=== PATIENT | male | born 1950 | race Caucasian/White ===

== ENCOUNTER 2017-07-19 09:31 | Outpatient (RCR) | payer MEDICARE, OTHER | END 2017-08-03 | disposition home or self-care (01) | LOC: ONC 09:31 | PROVIDERS: ATTEND Radiology Radiation Oncology | DX: Z51.0 Encounter for antineoplastic radiation therapy (principal); C61 Malignant neoplasm of prostate | CPT/HCPCS: 77300; 77301; 77334; 77336; 77338; 77385; 99214 ==

== ENCOUNTER 2018-01-09 14:59 | Outpatient (RCR) | payer MEDICARE, OTHER | END 2018-01-19 | disposition home or self-care (01) | LOC: ONC 14:59 | PROVIDERS: ATTEND Radiology Radiation Oncology | DX: C61 Malignant neoplasm of prostate (principal) | CPT/HCPCS: 99213 ==

== ENCOUNTER 2019-02-06 09:43 | Outpatient (RCR) | payer MEDICARE, OTHER | END 2019-04-23 | disposition home or self-care (01) | LOC: ONC 09:43 | PROVIDERS: ATTEND Radiology Radiation Oncology | DX: Z51.0 Encounter for antineoplastic radiation therapy (principal); C61 Malignant neoplasm of prostate | CPT/HCPCS: 77290; 77295; 77300; 77334; 77336; 77402; 77417; 77470; 99214 ==

== ENCOUNTER → 2019-02-08 | Outpatient (CLI) | payer MEDICARE, OTHER ==
[~2019-02-08] MED LIST: GADOBUTROL 10 MMOL/10 ML (GADAVIST) VIAL IV ONE
[2019-02-08 15:32] LABS: BUN/CREATININE RATIO 16; CREATININE SERUM 0.88 MG/DL (0.60-1.30); GFR ESTIMATED > 60
--- NOTE | 2019-02-08 17:00 | Diagnostic Imaging Report ---
PROCEDURE: MR imaging cervical spine with and without contrast. TECHNIQUE: Multiplanar and multisequence MRI of the cervical spine was performed with and without contrast. INDICATION: Neck pain. Prostate cancer with known skeletal metastases elsewhere in the body. COMPARISON: Thoracic spine MRI from 01/11/2019. FINDINGS: Mild straightening of the cervical spine is present. No marrow replacing process or pathologic enhancement to indicate skeletal metastases in the cervical spine. Cervical cord is normal in size and signal. No epidural mass or fluid collection. C2-C3: No spinal canal or neural foraminal narrowing. C3-C4: Posterior disc osteophyte complex partially effaces the ventral thecal sac. However, there is no spinal stenosis. Moderate right and mild left foraminal narrowing. C4-C5: Bilateral uncovertebral joint hypertrophy results in [id number] bilateral foraminal narrowing. No spinal stenosis. C5-C6: Central and bilateral paracentral disc osteophyte complex causes mild spinal stenosis. There is also [id number] bilateral foraminal narrowing due to uncovertebral joint hypertrophy. C6-C7: Left uncovertebral joint hypertrophy results in severe femoral narrowing. No resultant spinal stenosis. C7-T1: No spinal canal or foraminal narrowing. IMPRESSION: 1. No skeletal or soft tissue metastases within the cervical spine. Please note that nuclear medicine bone scan is the most sensitive exam to evaluate for skeletal metastases associated with prostate cancer. 2. No high-grade spinal stenosis. 3. Varying degrees of [id number] foraminal narrowing due to degenerative uncovertebral joint hypertrophy. Dictated by: Dictated on workstation # [id number]
== END ==
LOC: RAD 14:54
PROVIDERS: ATTEND Radiology Radiation Oncology
DX: M48.02 Spinal stenosis, cervical region (principal); M47.812 Spondylosis without myelopathy or radiculopathy, cervical region; C61 Malignant neoplasm of prostate; C79.51 Secondary malignant neoplasm of bone
CPT/HCPCS: 36415; 72156; 82565; 84520

== ENCOUNTER → 2019-10-25 | Outpatient (CLI) | payer MEDICARE, OTHER ==
[2019-10-25 14:46] LABS: BUN/CREATININE RATIO 18; GFR ESTIMATED > 60
--- NOTE | 2019-10-25 18:55 | Diagnostic Imaging Report ---
PROCEDURE: MRI right joint lower extremity with and without contrast. TECHNIQUE: Multiplanar, multisequence pre and post contrast-enhanced WILMAN of the right joint lower extremity was accomplished. INDICATION: Right hip pain. History of metastatic prostate cancer. COMPARISON: None available. FINDINGS: Bones: There are 2 rounded hypo-intense lesions in the posterior aspect of the right ilium and a potential lesion in the left iliac wing that may represent metastases. There are no features of skeletal metastases around either hip. A subchondral insufficiency fracture involves the left femoral head with a small amount of surrounding edema indicative of a subacute injury. Severe degenerative arthritis of both hips which have full-thickness articular cartilage loss in the superior aspect and associated underlying subchondral cystic change. Degenerative macerated tearing is present within the right anterosuperior labrum. Muscles and tendons: The proximal hamstring complexes are normal. The bilateral distal iliopsoas tendons are intact. The gluteus medius and minimus insertions are normal. No peritrochanteric fluid collection to indicate bursitis. Soft tissues: No enhancing soft tissue mass to suggest metastasis. Small bilateral hip effusions. IMPRESSION: 1. Subacute insufficiency fracture involving the LEFT femoral head. Severe degenerative arthritis of the left hip is also present. 2. There is also severe degenerative arthritis of the right hip without osteonecrosis or stress fracture. 3. Small hypointense foci in the bilateral marcio could represent prostate metastasis. Correlation with CT of the pelvis would be beneficial. Dictated by: Dictated on workstation # [id number]
== END ==
LOC: RAD 14:02
PROVIDERS: ATTEND Nurse Practitioner Family
DX: M84.452A Pathological fracture, left femur, initial encounter for fracture (principal); M16.0 Bilateral primary osteoarthritis of hip; Z85.46 Personal history of malignant neoplasm of prostate
CPT/HCPCS: 36415; 73723; 82565; 84520

== ENCOUNTER 2019-10-30 10:32 | Outpatient (RCR) | payer MEDICARE, OTHER | END 2020-01-28 | disposition home or self-care (01) | LOC: ONC 10:32 | PROVIDERS: ATTEND Radiology Radiation Oncology | DX: C61 Malignant neoplasm of prostate (principal) | CPT/HCPCS: 99212 ==

== ENCOUNTER → 2019-10-30 | Outpatient (CLI) | payer MEDICARE, OTHER ==
--- NOTE | 2019-10-30 13:08 | Diagnostic Imaging Report ---
PROCEDURE: CT pelvis without contrast. TECHNIQUE: Multiple contiguous axial images were obtained through the pelvis without the use of intravenous contrast. Sagittal and coronal reformations were performed. Auto Exposure Controls were utilized during the CT exam to meet ALARA standards for radiation dose reduction. DATE: October 30, 2019. INDICATION: 69-year-old male, history of prostate cancer. Right hip and iliac crest pain. COMPARISON: MRI October 25, 2019. FINDINGS: There is severe joint space loss of the right hip. There are subchondral cystic changes in the femoral head and acetabulum with a large subchondral cyst in the right anterior acetabulum. There is note of a right hip joint effusion on the recent MRI which is also visible on CT. There is severe joint space loss of the left hip with mild osteophyte formation. There is note of a left hip joint effusion on the MRI which is also visible on CT. There is also a subchondral fracture of the left femoral head without current evidence of collapse. There are multiple sclerotic bone lesions involving the left superior pubic ramus near the pubic symphysis on axial image 135 measuring 12 mm in size, right anterior iliac crest on axial image 85 measuring 2.1 cm in size, sacrum to the left of midline on axial image 53 measuring 10 mm in size, left iliac bone on axial image 49 measuring 17 mm in size, two right iliac bone lesions on axial image 44 with the largest more anteriorly located measuring 12 mm in size as well as additional sclerotic bone lesions involving the upper aspects of both sacroiliac bones. One example on the left measures 2.3 cm in size on axial image 27. There is severe disc height loss at L3-L4, L4-L5, and L5-S1. There are facet degenerative changes at these levels. There are atherosclerotic calcifications. IMPRESSION: 1. Redemonstrated subchondral fracture of the left femoral head without current evidence of subchondral collapse. 2. Severe arthritis of both hips with bilateral hip joint effusions. 3. Numerous sclerotic bone lesions of the pelvis as described above, consistent with multifocal bone metastases. 4. Advanced disc and facet degenerative changes of the imaged lumbar spine. Dictated by: Dictated on workstation # [id number]
== END ==
LOC: RAD 12:11
PROVIDERS: ATTEND Radiology Radiation Oncology
DX: C61 Malignant neoplasm of prostate (principal); S72.052A Unspecified fracture of head of left femur, initial encounter for closed fracture; M16.0 Bilateral primary osteoarthritis of hip; M25.852 Other specified joint disorders, left hip; M47.816 Spondylosis without myelopathy or radiculopathy, lumbar region; I70.90 Unspecified atherosclerosis; M25.752 Osteophyte, left hip; M51.37 Other intervertebral disc degeneration, lumbosacral region
CPT/HCPCS: 72192

== ENCOUNTER → 2020-01-08 | Outpatient (CLI) | payer MEDICARE, OTHER ==
[2020-01-09 10:10] LABS: ALANINE AMINOTRANSFERASE 16 U/L (0-55); ALKALINE PHOSPHATASE 41 U/L (40-136); BILIRUBIN,TOTAL 0.3 MG/DL (0.1-1.0); BUN/CREATININE RATIO 28; CALCIUM 8.5 MG/DL (8.5-10.1); CARBON DIOXIDE 28 MMOL/L (21-32); CHLORIDE 104 MMOL/L (98-107); CREATININE SERUM 0.85 MG/DL (0.60-1.30); GFR ESTIMATED > 60; GLUCOSE 94 MG/DL (70-105); POTASSIUM 4.4 MMOL/L (3.6-5.0); SODIUM 141 MMOL/L (135-145)
[2020-01-09 10:11] LABS: ALBUMIN 3.9 GM/DL (3.2-4.5); TOTAL PROTEIN 6.3 GM/DL (6.4-8.2)
--- NOTE | 2020-01-09 13:39 | Diagnostic Imaging Report ---
Efrain Paez DB: 1950 EXAMINATION: MRI of the pelvis with and without contrast. INDICATION: Metastatic prostate carcinoma. Pre- and post-intravenous contrast multiplanar and multisequence imaging of the pelvis was performed. Correlation is made with recent MRI of the pelvis and proximal femora from 10/25/2019. There are small marrow replacing lesions involving the iliac bones bilaterally, correlating with previously noted lesions. The largest on the right is near the upper portion of the SI joint measuring 13 mm. Smaller lesion posterior to this measures 9 mm. The lesion at the left iliac crest measures 12 mm. A small lesion in the left pubic body measures 7 mm. There is a tiny lesion adjacent to the superior endplate of S2 vertebral segment measuring 5 mm. No sacral edema or evidence of sacral insufficiency fracture is identified. Significant degenerative changes bilateral hips is again seen. The previously noted subchondral insufficiency fracture involving the left femoral head is again noted. Subchondral edema within the right femoral head is present as well appears similar to prior exam. Possibility of a developing subchondral insufficiency fracture of the right femoral head cannot be entirely excluded. This was not entirely included on this exam. No definite pelvic lymphadenopathy, mass or fluid collection is seen. IMPRESSION: Marrow replacing lesions within the bony pelvis, as described, suggestive of metastatic disease. Dictated by: Dictated on workstation # [id number]
--- NOTE | 2020-01-09 13:58 | Diagnostic Imaging Report ---
NAME: Efrain Paez. : 1950. EXAMINATION: MRI lumbar spine with and without IV contrast. INDICATION: Metastatic prostate carcinoma. TECHNIQUE: Pre and post intravenous contrast multiplanar, multisequence imaging of the lumbar spine was performed. COMPARISON: No prior studies are available for comparison. FINDINGS: The curvature and alignment of the lumbar spine are normal. There is a small marrow replacing lesion within the S1 vertebra to the left of the midline measuring approximately 11 mm in size. Bilateral iliac rounded marrow replacing lesions are again noted. A small rounded marrow replacing lesion adjacent to the inferior endplate of the T12 vertebral body posteriorly is noted. The vertebral body heights are maintained. No acute compression fracture is identified. Severe degenerative disc disease is identified at all levels with significant disc space narrowing and desiccation as well as marginal osteophyte formation. The conus is unremarkable at the L1 level. T12-L1: The central canal is widely patent. The neuroforamina appear patent. L1-L2: A right paramidline disc/osteophyte complex produces slight indentation of the ventral thecal sac. The central canal remains patent. There is narrowing of the right lateral recess. There is also mild narrowing of the right neuroforamen. The left neuroforamen is patent. L2-S3: A broad-based disc/osteophyte complex flattens the ventral thecal sac but the central canal is patent. There is narrowing of the lateral recesses bilaterally, greatest on the left. There is also mild bilateral neuroforaminal narrowing. L3-L4: A broad-based disc/osteophyte complex flattens the ventral thecal sac. The central canal is patent. There is narrowing of the lateral recesses bilaterally, left greater. Mild bilateral neuroforaminal stenosis is seen. L4-L5: A broad-based disc/osteophyte complex flattens the ventral thecal sac. The central canal is patent but there is significant narrowing of the lateral recesses bilaterally. Moderate bilateral neuroforaminal narrowing is noted. There are hypertrophic facet changes. L5-S1: The central canal is patent. There is significant bilateral neuroforaminal stenosis as well as bilateral lateral recess stenosis. No significant abnormal enhancement following contrast administration is seen. IMPRESSION: 1. There are several marrow replacing lesions present as described, consistent with metastatic disease. 2. Severe multilevel lumbar spondylosis and facet arthropathy with multilevel lateral recess and neuroforaminal stenosis described level by level above. No significant central canal stenosis is identified. Dictated by: Dictated on workstation # [id number]
== END ==
LOC: RAD 09:30
PROVIDERS: ATTEND Specialist
DX: C61 Malignant neoplasm of prostate (principal); M89.9 Disorder of bone, unspecified; M48.07 Spinal stenosis, lumbosacral region; M51.36 Other intervertebral disc degeneration, lumbar region; M47.816 Spondylosis without myelopathy or radiculopathy, lumbar region
CPT/HCPCS: 36415; 72158; 72197; 80053

== ENCOUNTER → 2020-04-02 | Outpatient (CLI) | payer MEDICARE, OTHER ==
[~2020-04-02] MED LIST changes: +CATHETER FLUSH 10 ML SYR IV PRN; -GADOBUTROL 10 MMOL/10 ML (GADAVIST) VIAL IV ONE; +HOLD METFORMIN - RECEIVED CONTRAST 20 ML VIAL IV SCH; +IOHEXOL 350 MG/ML 100 ML (OMNIPAQUE 350) VIAL IV ONE; +NS 100 ML (IVPB) BAG IV ONE
[2020-04-02 10:28] LABS: BASOPHILS % (AUTO) 1 % (0-10); EOSINOPHILS # (AUTO) 0.1 10^3/uL (0.0-0.3); EOSINOPHILS % (AUTO) 1 % (0-10); HEMATOCRIT 38 % (40-54); HEMOGLOBIN 11.6 g/dL (13.3-17.7); LYMPHOCYTES # (AUTO) 1.1 10^3/uL (1.0-4.0); LYMPHOCYTES % (AUTO) 19 % (12-44); MEAN CORPUSCULAR HEMOGLOBIN 30 pg (25-34); MEAN CORPUSCULAR HGB CONC 31 g/dL (32-36); MEAN CORPUSCULAR VOLUME 99 fL (80-99); MEAN PLATELET VOLUME 8.1 fL (9.0-12.2); MONOCYTES # (AUTO) 0.5 10^3/uL (0.0-1.0); MONOCYTES % (AUTO) 9 % (0-12); NEUTROPHILS # (AUTO) 4.2 10^3/uL (1.8-7.8); NEUTROPHILS % (AUTO) 69 % (42-75); PLATELET COUNT 236 10^3/uL (130-400)
[2020-04-02 10:49] LABS: ALANINE AMINOTRANSFERASE 16 U/L (0-55); ALBUMIN 3.9 GM/DL (3.2-4.5); ALKALINE PHOSPHATASE 55 U/L (40-136); BILIRUBIN,TOTAL 0.3 MG/DL (0.1-1.0); BUN/CREATININE RATIO 22; CALCIUM 8.6 MG/DL (8.5-10.1); CARBON DIOXIDE 25 MMOL/L (21-32); CHLORIDE 103 MMOL/L (98-107); CREATININE SERUM 0.86 MG/DL (0.60-1.30); GFR ESTIMATED > 60; GLUCOSE 97 MG/DL (70-105); POTASSIUM 3.7 MMOL/L (3.6-5.0); SODIUM 141 MMOL/L (135-145); TOTAL PROTEIN 6.4 GM/DL (6.4-8.2)
--- NOTE | 2020-04-02 11:58 | Diagnostic Imaging Report ---
PROCEDURE: CT chest, abdomen, and pelvis with contrast. TECHNIQUE: Multiple contiguous axial images were obtained through the chest, abdomen, and pelvis after the administration of intravenous contrast. Auto Exposure Controls were utilized during the CT exam to meet ALARA standards for radiation dose reduction. INDICATION: Prostate carcinoma and right hip pain. FINDINGS: CT chest: No axillary lymphadenopathy is detected. No mediastinal or hilar lymphadenopathy is detected. No pericardial or pleural fluid is identified. No pulmonary infiltrates, nodules or masses are detected. There are multiple sclerotic foci throughout thoracic vertebral bodies. Multiple sclerotic foci involving bilateral ribs is also noted. 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 IMPRESSION: 1. No evidence of thoracic lymphadenopathy or pulmonary metastatic disease. There are osteoblastic metastases involving the thoracic spine, ribs and sternum. CT abdomen and pelvis: Tiny low-density left lobe of the liver measures 5 mm. This is too small to accurately characterize. There is a low-density lesion in posterior right lobe measuring 7 mm. A low-density lesion more inferiorly and laterally in the right lobe measures 11 mm. Gallbladder is unremarkable. There is no biliary ductal dilatation. Pancreas and spleen are unremarkable. There is no adrenal mass. Kidneys are unremarkable. Aorta is non-aneurysmal. No central, retroperitoneal or mesenteric lymphadenopathy is detected. The bowel loops are normal caliber. There is no ascites. Bladder and prostate are grossly unremarkable. No definite inguinal or iliac lymphadenopathy is identified. Evaluation of bony structures demonstrates sclerotic foci within the right iliac bone and left pubic bone as well as the sacrum consistent with osteoblastic metastatic disease. IMPRESSION: 1. Indeterminate low-density liver lesions. Hepatic metastatic disease cannot be entirely excluded. 2. No evidence of abdominal or pelvic lymphadenopathy. 3. Osteoblastic metastases within the pelvis and sacrum. Dictated by: Dictated on workstation # [id number]
--- NOTE | 2020-04-02 14:35 | Diagnostic Imaging Report ---
INDICATION: Prostate cancer. TECHNIQUE: Patient was administered 26.6 mCi technetium 99m MDP intravenously and whole body imaging was performed after three-hour delay. COMPARISON: No prior bone scans are available for comparison. FINDINGS: There is normal uptake of activity by the axial and appendicular skeleton. There is uptake by the kidneys with excretion into the urinary bladder. There are several foci of increased uptake involving the thoracic spine as well as bilateral ribs. There is some uptake involving the right iliac bone. These correspond with areas of sclerosis noted on CT earlier today and are consistent with osseous metastatic disease. Uptake in the cervical spine may be degenerative. IMPRESSION: Findings consistent with osseous metastatic disease. Dictated by: Dictated on workstation # [id number]
== END ==
LOC: CARD 10:14
PROVIDERS: ATTEND Physician Assistant
DX: Z00.6 Encounter for examination for normal comparison and control in clinical research program (principal); C61 Malignant neoplasm of prostate
CPT/HCPCS: 71260; 74177; 78306; 80053; 83615; 84100; 84153; 85025; A9503; 36415

== ENCOUNTER 2020-05-19 09:24 | Outpatient (RCR) | payer MEDICARE, OTHER | END 2020-07-20 | disposition home or self-care (01) | LOC: ONC 09:24 | PROVIDERS: ATTEND Radiology Radiation Oncology | DX: C80.1 Malignant (primary) neoplasm, unspecified (principal); C79.51 Secondary malignant neoplasm of bone | CPT/HCPCS: 77290; 77300; 77301; 77334; 77338; G0463; 77336; 77386; 99214 ==

== ENCOUNTER → 2022-04-26 | Outpatient (CLI) | payer MEDICARE, OTHER ==
[~2022-04-26] MED LIST changes: -CATHETER FLUSH 10 ML SYR IV PRN; +GADOTERATE 0.5 MMOL/ML (CLARISCAN) 15 ML VIAL IV ONE; -HOLD METFORMIN - RECEIVED CONTRAST 20 ML VIAL IV SCH; -IOHEXOL 350 MG/ML 100 ML (OMNIPAQUE 350) VIAL IV ONE; -NS 100 ML (IVPB) BAG IV ONE
--- NOTE | 2022-04-26 11:19 | Diagnostic Imaging Report ---
PROCEDURE: MRI thoracic spine with and without contrast. TECHNIQUE: Multiplanar, multisequence MRI of the thoracic spine was performed with and without contrast. INDICATION: Mid back pain. History of prostate cancer. COMPARISON: 04/02/2020. 01/11/2019. FINDINGS: THORACIC SPINE: No acute fracture or dislocation is seen in the thoracic spine. There has been progression of multifocal osseous metastatic disease throughout the thoracic spine. This involves essentially every vertebral body of the thoracic spine. No new height loss is seen to suggest pathologic fracture. There is straightening of the thoracic spine. The thoracic spinal cord demonstrates normal signal characteristics. No epidural collections are identified. Degenerative changes are seen in the thoracic spine with disc bulges and facet hypertrophy. These are greatest at the T10-T11 level with moderate spinal canal stenosis and moderate bilateral foraminal stenosis. No evidence of acute spinal canal stenosis. Paravertebral soft tissues are unremarkable. IMPRESSION: 1. Interval progression of metastatic osseous disease throughout the thoracic spine with involvement of all the vertebral bodies of the thoracic spine. No pathologic fracture is seen. 2. Normal intrinsic signal of the thoracic spinal cord. No evidence of acute spinal canal stenosis. Dictated by: Dictated on workstation # [id number]
--- NOTE | 2022-04-26 12:25 | Diagnostic Imaging Report ---
CLINICAL INDICATION: Patient has history of prostate cancer with spine pain. EXAM: MRI of the lumbar spine performed without and with 14 cc of Clariscan IV contrast. Obtained views include sagittal T2, sagittal T1, sagittal T2 fat-sat, axial T2, axial T1, axial T1 post IV contrast, and sagittal T1 fat-sat post IV contrast. COMPARISON: MRI of the lumbar spine with and without contrast dated 01/08/2020. FINDINGS: There is interval progression of diffuse low signal throughout the visualized axial skeleton with some areas of fat remaining involving the L5 vertebra, sacrum, and iliac crests. There is no acute lumbar spine fracture seen. There is straightening of the lumbar spine posture. There is interval progression of significant lymphadenopathy in the retroperitoneal region. There is a marker mass-like conglomeration of lymph nodes in the left periaortic region at the L3 level which measures grossly 2.6 cm x 2.7 cm. There is a marker retrocrural lymph node on the right side of the abdominal aorta which measures 1.3 cm x 1.8 cm in greatest axial dimension. The visualized portions of the distal thoracic spinal cord, conus medullaris, and cauda equina nerve roots are unremarkable. The conus medullaris tip is seen at the lower L1 vertebral body level. T12-L1: There is slight progression of a mild diffuse disk bulge posteriorly. There is no significant central canal or neuroforaminal narrowing. There is moderate bilateral facet arthropathy which has slightly progressed. L1-L2: There is a diffuse disk bulge with moderate to severe loss of disk space height which has progressed. There is mild to moderate bilateral facet arthropathy. There is mild right neuroforaminal narrowing which has slightly progressed. There is no significant left neuroforaminal narrowing. L2-L3: Again seen is a diffuse disk bulge with slight progression of loss of disk space height. There is endplate irregularity. There is mild to moderate central canal stenosis which has slightly progressed. There is progression of ligamentum flavum buckling and prominence of the posterior epidural fat. There is moderate bilateral facet arthropathy. There is no significant right neuroforaminal narrowing with stable mild left neuroforaminal narrowing. L3-L4: There is a diffuse disk bulge with hypertrophic far left lateral disk spurs. There is progression of the disk herniation component in the left foraminal region with moderate left neuroforaminal narrowing which has progressed. There is no significant right neuroforaminal narrowing. There is moderate bilateral facet arthropathy with hypertrophic changes on the left which have progressed. There is mild central canal stenosis. L4-L5: There is severe left facet arthropathy/hypertrophy and moderate right facet arthropathy/hypertrophy which have slightly progressed. There is slight progression of a diffuse disk bulge with hypertrophic disk spurs in the bilateral foraminal regions. There is stable moderate right neuroforaminal narrowing and severe left neuroforaminal narrowing which have progressed. There is prominence of the posterior epidural fat. There is mild central canal stenosis which has not significantly changed. L5-S1: There is interval progression of grade 1 anterolisthesis of L5 on S1. There is progression of a diffuse disk bulge with severe loss of disk space height and endplate irregularity. There is a chronic right L5 pedicle fracture which has slightly widened in the interim and appears grossly 6 mm distracted. There is no adjacent marrow edema. There is interval development of a pars interarticularis fracture on the left which appears chronic with no significant adjacent marrow edema. There is also slight distraction of this fracture as well to roughly 3 mm. There is no significant central canal stenosis. There is severe right neuroforaminal narrowing and moderate to severe left neuroforaminal narrowing which has progressed on the right and minimally progressed on the left. IMPRESSION: 1: There is interval significant progression of diffuse osseous metastatic disease. There is no pathologic fracture seen. 2: There is interval progression of lymphadenopathy in the retroperitoneal region and retrocrural space, concerning for metastatic disease. 3: There is interval progression of multilevel lumbar spine degenerative disease as described above. 4: There is interval development of grade 1 anterolisthesis of L5 on S1 with progression of a chronic right L5 pedicle fracture and development of a chronic left L5 pars interarticularis fracture. Dictated by: Dictated on workstation # [id number]
== END ==
LOC: RAD 07:36
PROVIDERS: ATTEND Internal Medicine
DX: M47.816 Spondylosis without myelopathy or radiculopathy, lumbar region (principal); M51.26 Other intervertebral disc displacement, lumbar region; M51.27 Other intervertebral disc displacement, lumbosacral region; M51.36 Other intervertebral disc degeneration, lumbar region; M48.061 Spinal stenosis, lumbar region without neurogenic claudication; M48.07 Spinal stenosis, lumbosacral region; M43.17 Spondylolisthesis, lumbosacral region
CPT/HCPCS: 72157; 72158